=== PATIENT | female | born 1950 | race Caucasian/White ===

== ENCOUNTER 2023-03-04 05:08 | Day surgery (SDC) | payer OTHER ==
[2023-02-26 11:16] VITALS: BMI 17.6
[2023-03-04] MEDS ORDERED: MIDAZOLAM HCL 2 MG/2 ML SINGLE DOSE VIAL ONE (07:49)
[2023-03-04] MEDS ORDERED: ceFAZolin SODIUM 1 GM VIAL IVPB ONE (08:35)
[2023-03-04] MEDS ORDERED: DEXTROSE 5%-0.45% SALINE 1,000 ML IV SCH (08:45)
[2023-03-04] MEDS ORDERED: oxyCODONE HCL 5 MG TABLET PO PRN (08:45)
[2023-03-04 10:16] VITALS: BP 117/72; PULSE 58; RESP 20; TEMP 97.4
== END 2023-03-04 10:24 | disposition home or self-care (01) ==
LOC: JASU-SURG 05:08
PROVIDERS: ATTEND Urology
PROC: 0TF3XZZ Fragmentation in Right Kidney Pelvis, External Approach (ICD-10-PCS; principal; 2023-03-04 08:30)
DX: N20.0 Calculus of kidney (principal)